=== PATIENT | female | born 1930 | race Two or more races ===

== ENCOUNTER 2018-01-17 10:55 | Outpatient (CLI) | payer OTHER ==
[~2018-01-17 10:55] MED LIST: CEFADROXIL500 MG PO; ULTRACET PO
== END 2018-01-17 11:00 | disposition home or self-care (01) ==
LOC: LAB 10:55 → EDBD 10:55 → LAB 11:00
DX: C44.729 Squamous cell carcinoma of skin of left lower limb, including hip (principal); D50.0 Iron deficiency anemia secondary to blood loss (chronic); G30.0 Alzheimer's disease with early onset; M81.0 Age-related osteoporosis without current pathological fracture; I10 Essential (primary) hypertension; I87.2 Venous insufficiency (chronic) (peripheral); I73.89 Other specified peripheral vascular diseases; D50.8 Other iron deficiency anemias; D51.1 Vitamin B12 deficiency anemia due to selective vitamin B12 malabsorption with proteinuria; E03.8 Other specified hypothyroidism; R97.0 Elevated carcinoembryonic antigen [CEA]

== ENCOUNTER 2018-06-23 14:38 | Emergency (ER) | payer OTHER ==
[~2018-06-23] VITALS: Ht 165.1 cm; Wt 69.9 kg
[2018-06-23] MEDS ORDERED: XELODA500 MG (15:15)
[2018-06-23] MEDS ORDERED: PENTOXIFYLLINE400 MG (15:16)
[2018-06-23] MEDS ORDERED: AMLODIPINE BESYL5 MG (15:16)
[2018-06-23] MEDS ORDERED: NEURONTIN600 MG (15:16)
== END 2018-06-23 21:34 | disposition home or self-care (01) ==
LOC: ER 14:38
DX: R41.0 Disorientation, unspecified (principal)